=== PATIENT | male | born 1970 | race African-American/Black ===

== ENCOUNTER 2018-08-02 12:13 | Emergency (ER) | payer MEDICAID, OTHER ==
[~2018-08-02] VITALS: Ht 172.7 cm; Wt 86.0 kg
[2018-08-02] MEDS ORDERED: MORPHINE SULFATE 10 MG/ML CPJ IM ONE (13:00)
[2018-08-02] MEDS ORDERED: KETOROLAC 30MG/ML VIAL IM ONE (13:00)
[2018-08-02] MEDS ORDERED: ONDANSETRON 4MG ODT PO ONE (13:00)
[2018-08-02 15:11] VITALS: BP 118/73
== END 2018-08-02 15:27 | disposition home or self-care (01) ==
LOC: ER 12:13
DX: S09.90XA Unspecified injury of head, initial encounter (principal); S16.1XXA Strain of muscle, fascia and tendon at neck level, initial encounter; W22.8XXA Striking against or struck by other objects, initial encounter; Y93.89 Activity, other specified; Y92.89 Other specified places as the place of occurrence of the external cause; Y99.8 Other external cause status
CPT/HCPCS: 70450; 71045; 72125; 96372; 99284; J1885; J2270; Q0162; L0172